=== PATIENT | female | born 1995 | race African-American/Black ===

== ENCOUNTER 2016-12-05 15:25 | Emergency (ER) | payer OTHER ==
[~2016-12-05] VITALS: Ht 170.2 cm; Wt 68.0 kg
[2016-12-05 15:26] VITALS: BP 128/67
== END 2016-12-05 16:44 | disposition left against medical advice (07) ==
LOC: ER 15:25
DX: Z00.8 Encounter for other general examination (principal); Z53.21 Procedure and treatment not carried out due to patient leaving prior to being seen by health care provider

== ENCOUNTER 2017-02-09 22:13 | Emergency (ER) | payer OTHER ==
[~2017-02-09] VITALS: Ht 170.2 cm; Wt 73.0 kg
[2017-02-09 22:16] VITALS: BP 124/91
== END 2017-02-09 23:40 | disposition left against medical advice (07) ==
LOC: ER 22:13
DX: Z53.21 Procedure and treatment not carried out due to patient leaving prior to being seen by health care provider (principal)

== ENCOUNTER 2017-03-07 22:05 | Emergency (ER) | payer OTHER ==
[~2017-03-07] VITALS: Ht 170.2 cm; Wt 70.0 kg
[2017-03-07 22:09] VITALS: BP 129/73
== END 2017-03-07 23:31 | disposition left against medical advice (07) ==
LOC: ER 22:16
DX: M79.644 Pain in right finger(s) (principal); Z53.21 Procedure and treatment not carried out due to patient leaving prior to being seen by health care provider